=== PATIENT | male | born 1955 | race African-American/Black ===

== ENCOUNTER 2020-08-24 14:10 | Emergency (ER) | payer SELFPAY ==
[2020-08-24] MEDS ORDERED: DIPHTH,PERTUSS(ACELL),TET 0.5 ML DISP.SYRIN IM ONE (14:29)
[2020-08-24 15:41] VITALS: BP 111/66; PULSE 74; TEMP 98.2; BMI 24.4
== END 2020-08-24 16:47 | disposition home or self-care (01) ==
LOC: JER 14:10
CPT/HCPCS: 70450-TC; 72125-TC; 99285-25